=== PATIENT | female | born 1995 | race Caucasian/White ===

== ENCOUNTER 2017-11-02 04:45 | Emergency (ER) | payer OTHER ==
--- NOTE | 2017-11-02 04:54 | EDPHY ---
H & P Stated Complaint: Vomiting, constipation, abd pain HPI/ROS: HPI CHIEF COMPLAINT: Abdominal pain, nausea, vomiting HISTORY OF PRESENT ILLNESS: This patient very pleasant 22-year-old female, she is otherwise healthy with no significant medical history does not take any daily medications she presents emergency room with abdominal pain this started around 2 o'clock this morning with associated nausea she did vomit 4 times prior to coming to the emergency room. She complains of lower abdominal pain periumbilical as well as midline. She describes a dull constant ache. It is progressively gotten worse throughout the evening. She decided come the emergency room as the pain she cannot tolerate any further. She does state that she thinks she is constipated. Her last bowel movement was yesterday. She denies any urinary symptoms. She denies being . Denies fever. Denies chest pain or shortness of breath. Denies upper abdominal pain Past Medical History: Denies medical history Past Surgical History: Denies surgical history Social History: Occasional alcohol use, denies daily drug use or tobacco. Family History: Noncontributory ROS REVIEW OF SYSTEMS: A comprehensive 10 point review of systems is otherwise negative aside from elements mentioned in the history of present illness. Exam Constitutional appears uncomfortable, triage nursing summary reviewed, vital signs reviewed, awake/alert. Eyes normal conjunctivae and sclera, EOMI, PERRLA. HENT normal inspection, atraumatic, moist mucus membranes, no epistaxis, neck supple/ no meningismus, no raccoon eyes. Respiratory clear to auscultation bilaterally, normal breath sounds, no respiratory distress, no wheezing. Cardiovascular rate normal, regular rhythm, no murmur, no edema, distal pulses normal. Gastrointestinal mild tender palpation periumbilical and midline suprapubic, no rebound, no guarding, normal bowel sounds, no distension, no pulsatile mass. Genitourinary no CVA tenderness. Musculoskeletal no midline vertebral tenderness, full range of motion, no calf swelling, no tenderness of extremities, no meningismus, good pulses, neurovascularly intact. Skin pink, warm, & dry, no rash, skin atraumatic. Neurologic awake, alert and oriented x 3, AAOx3, moves all 4 extremities equally, motor intact, sensory intact, CN II-XII intact, normal cerebellar, normal vision, normal speech. Psychiatric normal mood/affect. Heme/Lymph/Immune no lymphadenopathy. Differential diagnosis includes but is not limited to and in no particular order : Bowel obstruction, appendicitis, gallbladder disease, diverticulitis, colitis , enteritis, perforated viscus, gastritis, GERD, esophagitis, urinary tract infection, pyelonephritis, kidney stones Medical Decision Making: Plan for this patient IV establishment with blood draw , check blood work and electrolytes, check urinalysis, check test patient has an IUD, most likely proceed with CT scan abdomen pelvis with IV contrast rule out acute appendicitis. IV fluids, IV morphine for pain control, IV Zofran for nausea and re-evaluate. Re-evaluation: CT scan abdomen pelvis with IV contrast called to me by Dr. Kim. This shows no evidence of acute appendicitis however there is some inflammation at the cecum. Normal appendix visualized. Possible mesenteric adenitis. Moderate amount of stool. Please see full dictation report. 0622: On re-examination abdomen is soft nontender. Blood work reviewed mild leukocytosis. Normal appendix on CT. Most likely cause of abdominal pain, elevated white count is a viral syndrome causing possible mesenteric adenitis. Urinalysis at this time is pending. Plan will for her to go home she is pain- free. I have discussed return precautions with her she understands return emergency room she develops worsening abdominal pain fever vomiting. I have given a prescription for Zofran for nausea MiraLax for stool. If she has worsening abdominal pain fever vomiting return to the ER she understands. Source: Patient - Personal History LMP (Females 10-55): IUD In Place Current Tetanus Diphtheria and Acellular Pertussis (TDAP): Yes - Medical/Surgical History Hx Asthma: No Hx Chronic Respiratory Disease: No Hx Diabetes: No Hx Cardiac Disease: No Hx Renal Disease: No Hx Cirrhosis: No Hx Alcoholism: No Hx HIV/AIDS: No Hx Splenectomy or Spleen Trauma: No - Social History Smoking Status: Never smoked Constitutional: Initial Vital Signs Temperature (C) 36.6 C 11/02/17 04:47 Heart Rate 78 11/02/17 04:47 Respiratory Rate 18 11/02/17 04:47 Blood Pressure 115/61 11/02/17 04:47 O2 Sat (%) 97 11/02/17 04:47 O2 Delivery Mode Room Air Allergies/Adverse Reactions: No Known Allergies Allergy (Unverified 11/02/17 04:47) Home Medications: Medication Instructions Recorded Ondansetron HCl [Zofran] 4 mg PO Q4-6PRN PRN #10 tablet 11/02/17 Polyethylene Glycol 3350 [Miralax 17 gm PO DAILY #4 pkt 11/02/17 17 gm (*)] Medical Decision Making - Data Points Laboratory Results: Laboratory Results 11/02/17 05:10 11/02/17 05:10 11/02/17 11/02/17 11/02/17 05:10 05:10 05:10 WBC 14.22 10^3/uL H 10^3/uL (3.80-9.50) RBC 4.40 10^6/uL 10^6/uL (4.18-5.33) Hgb 14.1 g/dL g/dL (12.6-16.3) Hct 40.1 % % (38.0-47.0) MCV 91.1 fL fL (81.5-99.8) MCH 32.0 pg pg (27.9-34.1) MCHC 35.2 g/dL g/dL (32.4-36.7) RDW 11.8 % % (11.5-15.2) Plt Count 258 10^3/uL 10^3/uL (150-400) MPV 10.5 fL fL (8.7-11.7) Neut % (Auto) 70.8 % % (39.3-74.2) Lymph % (Auto) 22.5 % % (15.0-45.0) [place] % (Auto) 5.1 % % (4.5-13.0) Eos % (Auto) 0.8 % % (0.6-7.6) Baso % (Auto) 0.4 % % (0.3-1.7) Nucleat RBC Rel Count 0.0 % % (0.0-0.2) Absolute Neuts (auto) 10.08 10^3/uL H 10^3/uL (1.70-6.50) Absolute Lymphs (auto) 3.20 10^3/uL H 10^3/uL (1.00-3.00) Absolute Monos (auto) 0.72 10^3/uL 10^3/uL (0.30-0.80) Absolute Eos (auto) 0.11 10^3/uL 10^3/uL (0.03-0.40) Absolute Basos (auto) 0.06 10^3/uL 10^3/uL (0.02-0.10) Absolute Nucleated RBC 0.00 10^3/uL 10^3/uL (0-0.01) Immature Gran % 0.4 % % (0.0-1.1) Immature Gran # 0.05 10^3/uL 10^3/uL (0.00-0.10) Sodium 141 mEq/L mEq/L (135-145) Potassium 4.0 mEq/L mEq/L (3.5-5.2) Chloride 104 mEq/L mEq/L (97-110) Carbon Dioxide 21 mEq/l L mEq/l (22-31) Anion Gap 16 mEq/L mEq/L (8-16) BUN 14 mg/dL mg/dL (7-23) Creatinine 0.9 mg/dL mg/dL (0.6-1.0) Estimated GFR > 60 Glucose 132 mg/dL H mg/dL (70-100) Calcium 9.8 mg/dL mg/dL (8.5-10.4) Total Bilirubin 0.7 mg/dL mg/dL (0.1-1.4) Conjugated Bilirubin 0.2 mg/dL mg/dL (0.0-0.5) Unconjugated Bilirubin 0.5 mg/dL mg/dL (0.0-1.1) AST 38 IU/L IU/L (14-46) ALT 48 IU/L IU/L (9-52) Alkaline Phosphatase 79 IU/L IU/L (38-126) Total Protein 8.0 g/dL g/dL (6.3-8.2) Albumin 4.5 g/dL g/dL (3.5-5.0) Lipase 139 IU/L IU/L (23-300) Beta HCG, Qual NEGATIVE Medications Given: Discontinued Medications Hydromorphone HCl (Dilaudid) 1 mg IVP EDNOW ONE Stop: 11/02/17 05:38 Last Admin: 11/02/17 05:51 Dose: 0.5 mg Sodium Chloride (Ns) 1,000 mls @ 0 mls/hr IV EDNOW ONE; Wide Open PRN Reason: Protocol Stop: 11/02/17 05:00 Last Admin: 11/02/17 05:14 Dose: 1,000 mls Morphine Sulfate (Morphine) 4 mg IVP EDNOW ONE Stop: 11/02/17 05:06 Last Admin: 11/02/17 05:17 Dose: 4 mg Ondansetron HCl (Zofran) 4 mg IVP EDNOW ONE Stop: 11/02/17 05:00 Last Admin: 11/02/17 05:16 Dose: 4 mg Departure - Departure Disposition: Home, Routine, Self-Care Clinical Impression: Abdominal pain Qualifiers: Abdominal location: right lower quadrant Qualified Code(s): R10.31 - Right lower quadrant pain Condition: Good Instructions: Acute Abdominal Pain (ED), Mesenteric Adenitis (ED) Additional Instructions: 1. Planned for next 24-48 hours. 2. Return emergency room if you have severe abdominal pain vomiting or high fever. Referrals: Leonarda Gill MD [Primary Care Provider] - As per Instructions Prescriptions: Ondansetron HCl [Zofran] 4 mg PO Q4-6PRN PRN #10 tablet PRN Reason: Nausea/Vomiting, Use 1st Polyethylene Glycol 3350 [Miralax 17 gm (*)] 17 gm PO DAILY #4 pkt
[2017-11-02] MEDS ORDERED: NS 1,000 ML IV ONE (04:59)
[2017-11-02] MEDS ORDERED: ONDANSETRON 4 MG/2 ML VIAL IVP ONE (04:59)
[2017-11-02 05:00] VITALS: RESP 18
[2017-11-02] MEDS ORDERED: IOPAMIDOL (ISOVUE-300) 100 ML BTL ONE (05:19)
[2017-11-02 05:27] LABS: PLATELET COUNT 258 10^3/uL (150-400)
[2017-11-02] MEDS ORDERED: HYDROmorphONE/DILAUDID 1 MG/ML INJ IVP ONE (05:37)
[2017-11-02] MEDS ORDERED: KETOROLAC 15 MG/1 ML SDV IVP ONE (06:13)
[2017-11-02] MEDS ORDERED: CEPHALEXIN 500MG PREPACK#4 BTL TAKEHOME ONE (07:12)
[2017-11-02] MEDS ORDERED: CEPHALEXIN 500 MG CAP PO ONE (07:12)
[2017-11-02 07:37] VITALS: BP 104/60; PULSE 69; TEMP 98.4; O2SAT 98
== END 2017-11-02 07:35 | disposition home or self-care (01) ==
DX: R10.31 Right lower quadrant pain (principal); E86.9 Volume depletion, unspecified
CPT/HCPCS: 96374; J1170; J1885; J2405; Q9967